=== PATIENT | male | born 1985 | race African-American/Black ===

== ENCOUNTER 2016-11-14 23:25 | Emergency (ER) | END 2016-11-15 02:19 | disposition home or self-care (01) | DX: S43.004A Unspecified dislocation of right shoulder joint, initial encounter (principal); R40.2252 Coma scale, best verbal response, oriented, at arrival to emergency department; S42.209A Unspecified fracture of upper end of unspecified humerus, initial encounter for closed fracture; R40.2362 Coma scale, best motor response, obeys commands, at arrival to emergency department; R40.2142 Coma scale, eyes open, spontaneous, at arrival to emergency department; X50.1XXA Overexertion from prolonged static or awkward postures, initial encounter; Y92.9 Unspecified place or not applicable | CPT/HCPCS: 23650; 73020; J2060 ==